=== PATIENT | male | born 1945 | race Caucasian/White ===

== ENCOUNTER 2016-07-26 08:20 | Emergency (ER) | payer OTHER, MEDICARE ==
[2016-07-26 08:25] VITALS: BP 153/89; PULSE 80; TEMP 98.2; BMI 33.4
--- NOTE | 2016-07-26 09:51 | PDOC ---
History of Present Illness - General Chief Complaint: Ear Problem Stated Complaint: RIGHT EAR CONGESTION Time Seen by Provider: 07/26/16 09:22 - History of Present Illness Initial Comments: 07/26/16 09:57 70-year-old male with a past medical history of hypertension and hyperlipidemia He is complaining of a 2 day history of a sensation in his right ear which she described as "a wind tunnel" feeling in his right ear, with some irritation He denies any recent URI, nasal congestion or sore throat, or left ear symptoms He denies any history of tinnitus He denies any fevers or chills He denies any other complaints Past History - Past Medical History Allergies/Adverse Reactions: Allergies Allergy/AdvReac Type Severity Reaction Status Date / Time No Known Drug Allergies Allergy Verified 07/26/16 08:21 Home Medications: Ambulatory Orders Amlodipine Besylate [Norvasc -] 10 mg PO DAILY 03/27/14 Metoprolol Tartrate [Lopressor -] 50 mg PO DAILY 03/27/14 Rosuvastatin Calcium [Crestor] 40 mg PO DAILY 03/27/14 Clopidogrel Bisulfate [Plavix -] 75 mg PO DAILY 07/26/16 Losartan Potassium [Cozaar] 100 mg PO DAILY 07/26/16 Neomycin/Polymyxn/Hc [Cortisporin Otic Suspenstion -] 4 drop AD QID #1 bottle Anemia: No Asthma: No Cancer: No Cardiac Disorders: Yes (MILD CO,HAD 5 STENTS 9844-1650;CAD,LAST NUCLEAR STRESS 5 MOS AGO AND [place]) CVA: No COPD: No CHF: No Dementia: No Diabetes: No GI Disorders: No Disorders: No HTN: Yes Hypercholesterolemia: Yes Liver Disease: No Seizures: No Thyroid Disease: No - Surgical History Abdominal Surgery: No Appendectomy: No Cardiac Surgery: Yes (CABG X3, PACEMAKER, STENT) Cholecystectomy: Yes Lung Surgery: No Neurologic Surgery: No Orthopedic Surgery: Yes (TRIGGER FINGER RELEASE) - Immunization History Td Vaccination: No - Psycho/Social/Smoking Cessation Hx Anxiety: No Suicidal Ideation: No Smoking Status: No Smoking History: Never smoked Have you smoked in the past 12 months: No Number of Cigarettes Smoked Daily: 0 Hx Alcohol Use: No Drug/Substance Use Hx: No Substance Use Type: None Hx Substance Use Treatment: No *Physical Exam - Vital Signs Last Vital Signs Temp Pulse Resp BP Pulse Ox 98.2 F 80 16 153/89 100 07/26/16 08:21 07/26/16 08:21 07/26/16 08:21 07/26/16 08:21 07/26/16 08:21 - Physical Exam Comments: 07/26/16 09:58 Physical exam Last Vital Signs Temp Pulse Resp BP Pulse Ox 98.2 F 80 16 153/89 100 07/26/16 08:21 07/26/16 08:21 07/26/16 08:21 07/26/16 08:21 07/26/16 08:21 Patient is awake and alert and answering questions Head is normocephalic and atraumatic Left TM is benign Right ear-there is mild otitis externa, with some debris in the canal There is no otitis media, and the tympanic membrane is intact There is no pre-or postauricular adenopathy Mouth and oropharynx are benign Neck is supple, no cervical adenopathy lungs clear heart regular *DC/Admit/Observation/Transfer Diagnosis at time of Disposition: Otitis externa - Discharge Dispostion Disposition: HOME Condition at time of disposition: Stable - Prescriptions Prescriptions: Neomycin/Polymyxn/Hc [Cortisporin Otic Suspenstion -] 4 drop AD QID #1 bottle - Referrals Referrals: Rosas Astudillo MD [Staff Physician] - - Patient Instructions Printed Discharge Instructions: Otitis Externa, DI for Otitis Externa Additional Instructions: Eardrops-4 drops to right ear every 6 hours Please follow-up with ENT if you are not [id number] with Dr. Astudillo Followup with your primary care physician in 24-48 hours Return immediately if you worsen in any way Take your medications as directed
== END 2016-07-26 09:54 | disposition home or self-care (01) ==
LOC: FER 08:20
DX: H60.91 Unspecified otitis externa, right ear (principal); I10 Essential (primary) hypertension; E78.5 Hyperlipidemia, unspecified; I25.2 Old myocardial infarction; Z95.5 Presence of coronary angioplasty implant and graft; Z95.0 Presence of cardiac pacemaker; Z95.1 Presence of aortocoronary bypass graft
CPT/HCPCS: 99282-25

== ENCOUNTER 2016-09-25 06:17 | Day surgery (SDC) | payer OTHER ==
[2016-09-24 16:40] VITALS: BMI 32.3
[2016-09-25] MEDS ORDERED: FLURBIPROFEN 0.03% OPHTH SOLN 2.5 ML BOTTLE ONE (06:36)
[2016-09-25] MEDS ORDERED: PHENYLEPHRINE 2.5% OPHTH SOLN 15 ML BOTTLE ONE (06:36)
[2016-09-25] MEDS ORDERED: TROPICAMIDE 1% OPHTH SOLN 15 ML BOTTLE ONE (06:36)
[2016-09-25] MEDS ORDERED: CYCLOPENTOLATE HCL 1% OPHTH SOLN 2 ML BOTTLE ONE (06:36)
[2016-09-25] MEDS ORDERED: CIPROFLOXACIN 0.3% EYE DROPS 5 ML BOTTLE ONE (06:36)
[2016-09-25 06:43] VITALS: TEMP 98.1
[2016-09-25] MEDS ORDERED: TROPICAMIDE 1% OPHTH SOLN 15 ML BOTTLE OD ONE ×3 (06:50→07:10)
[2016-09-25] MEDS ORDERED: PHENYLEPHRINE 2.5% OPHTH SOLN 15 ML BOTTLE OD ONE ×3 (06:50→07:10)
[2016-09-25] MEDS ORDERED: FLURBIPROFEN 0.03% OPHTH SOLN 2.5 ML BOTTLE OD ONE ×3 (06:50→07:10)
[2016-09-25] MEDS ORDERED: CYCLOPENTOLATE HCL 1% OPHTH SOLN 2 ML BOTTLE OD ONE ×3 (06:50→07:10)
[2016-09-25] MEDS ORDERED: CIPROFLOXACIN HCL 0.3% OPHTH 2.5ML BOTTLE OD ONE ×2 (06:50→07:05)
[2016-09-25] MEDS ORDERED: CIPROFLOXACIN 0.3% EYE DROPS 5 ML BOTTLE OD ONE (07:10)
[2016-09-25] MEDS ORDERED: EPINEPHrine/PF 1 MG/1 ML (1:1,000) AMPULE ONE (07:18)
[2016-09-25] MEDS ORDERED: LIDOCAINE HCL 2% JELLY (5 ML/TUBE) ONE (07:18)
[2016-09-25] MEDS ORDERED: LIDOCAINE 1% P/F 10 MG/ML VIAL ONE (07:18)
[2016-09-25] MEDS ORDERED: BUPIVACAINE HCL/PF 0.75% 10 ML VIAL ONE (07:18)
[2016-09-25] MEDS ORDERED: POVIDONE-IODINE 5% OPHTHALMIC PREP 30 ML SOLUTION ONE (07:19)
[2016-09-25] MEDS ORDERED: BSS (NA/CA/MG/K) BALANCED SALT SOLUTION OPHTH SOLN 15 ML BOTTLE ONE (07:19)
[2016-09-25] MEDS ORDERED: ACETYLCHOLINE 1:100 INTRA-OCUL 20 MG/2 ML KIT ONE (07:19)
[2016-09-25] MEDS ORDERED: TRYPAN BLUE 0.5 ML DISP.SYRIN ONE (07:19)
[2016-09-25] MEDS ORDERED: LIDOCAINE HCL/PF 2% SDV 5ML VIAL ONE (07:19)
[2016-09-25] MEDS ORDERED: WATER FOR INJ,STERILE 10 ML ONE (07:21)
[2016-09-25] MEDS ORDERED: VANCOMYCIN 500 MG VIAL (RESTRICTED TO ID ONLY) ONE (07:21)
[2016-09-25] MEDS ORDERED: ACETAMINOPHEN 325 MG TABLET (FP) PO PRN (07:43)
[2016-09-25] MEDS ORDERED: CYCLOPENTOLATE HCL 1% OPHTH SOLN 2 ML BOTTLE OP SCH (07:45)
[2016-09-25] MEDS ORDERED: TROPICAMIDE 1% OPHTH SOLN 15 ML BOTTLE OP SCH (07:45)
[2016-09-25] MEDS ORDERED: FLURBIPROFEN 0.03% OPHTH SOLN 2.5 ML BOTTLE OP SCH (07:45)
[2016-09-25] MEDS ORDERED: PHENYLEPHRINE 2.5% OPHTH SOLN 15 ML BOTTLE OP SCH (07:45)
[2016-09-25] MEDS ORDERED: CIPROFLOXACIN HCL 0.3% OPHTH 2.5ML BOTTLE OP SCH (07:45)
[2016-09-25] MEDS ORDERED: MIDAZOLAM HCL 2 MG/2 ML SINGLE DOSE VIAL ONE (07:45)
[2016-09-25] MEDS ORDERED: PROPOFOL 20 ML ONE (08:03)
[2016-09-25] MEDS ORDERED: LIDOCAINE HCL/PF 2% SDV 5ML VIAL PNB ONE ×2 (08:09→08:10)
[2016-09-25] MEDS ORDERED: BUPIVACAINE HCL/PF 0.75% 10 ML VIAL RB ONE (08:09)
[2016-09-25] MEDS ORDERED: BUPIVACAINE HCL/PF 0.75% 10 ML VIAL PNB ONE (08:10)
[2016-09-25] MEDS ORDERED: CHONDROITIN SU A/HYALUR SOD 1 KIT IO ONE (08:16)
[2016-09-25] MEDS ORDERED: LIDOCAINE HCL 1% PRESERVATIVE FREE - 30ML VIAL IO ONE (08:16)
[2016-09-25 09:32] VITALS: BP 149/89; PULSE 88
--- NOTE | 2016-09-25 19:42 | SPEC ---
DATE OF OPERATION: DATE OF DICTATION: 09/25/2016 OPERATION: Phacoemulsification on right side with posterior chamber intraocular lens implantation, lens used [id number], 21.0 Diopter, Serial No. [id number]. PREOPERATIVE DIAGNOSIS: Cataract right eye. POSTOPERATIVE DIAGNOSIS: Cataract right eye. SURGEON: Elva Londono M.D. ANESTHESIA: Peribulbar/Modified Van Lint/MAC. COMPLICATIONS: None. PROCEDURE: The patient was brought to the operating room and correctly identified along with the operative site and a correct intraocular lens garcia. The patient was then given a peribulbar block under sedation with 5 mL of a 1:1 mixture of 2% Lidocaine and 0.5% Bupivacaine. Two to 3 mL of the same mixture was given as a modified Van Lint block. The eye was then prepped and draped in the usual sterile fashion including 5% Betadine solution in the conjunctival sac and an eyelid drape. An eyelid speculum was then placed into the eye. A paracentesis port was created. Viscoelastic was injected to inflate the anterior chamber. A temporal clear corneal wound was created. A continuous circular capsulorrhexis was performed. The nucleus was then hydro-dissected and removed phacoemulsification via the [id number] approach. The remaining cortical material was irrigated and aspirated from the eye. Viscoelastic was injected to inflate the capsular bag. The lens was injected into the capsular bag. Viscoelastic was then irrigated and aspirated from the eye. The intraocular lens was noted to be well centered and covered by the anterior capsular border. All wounds were found to be watertight. Topical Vancomycin was given. The eye patch and shield were placed. The patient was discharged from the operating room in stable condition. ELVA LONDONO M.D. 1 [id number]
== END 2016-09-25 09:30 | disposition home or self-care (01) ==
LOC: JASU-SURG 06:17
PROVIDERS: ATTEND Ophthalmology
PROC: 08RJ3JZ Replacement of Right Lens with Synthetic Substitute, Percutaneous Approach (ICD-10-PCS; principal; 2016-09-25 08:00)
DX: H26.9 Unspecified cataract (principal)

== ENCOUNTER 2017-09-03 17:45 | Emergency (ER) | payer OTHER ==
[2017-09-03 18:01] VITALS: BP 155/81; PULSE 76; TEMP 98.1; BMI 32.6
--- NOTE | 2017-09-03 18:06 | PDOC ---
History of Present Illness - General History Source: Patient Exam Limitations: No Limitations - History of Present Illness Initial Comments: 09/03/17 19:00 The patient is a 72 year old male with significant past medical history of Right eye Cataract, HTN, HLD, Mild CA, Hypercholesterolemia, CABG 3X, pacemaker , stent and UTI presents to the ED complaining of hematuria since 1 o'clock this afternoon. The patient states he voided three times in the afternoon, prior to coming to the ER he reports passing dark red urine with a large blood clot. The patient reports a similar experience 2 years ago when he was diagnosed with UTI and was prescribed antibiotics. The patient reports night time urination 3x as his baseline.The patient report he takes baby Aspirin every other day, he states he took one today. The patient reports edema in his left lower extremity secondary to the vein removed during CABG. The patient denies dysuria or burning sensation, frequency or urgency to urinate, hematochezia, hematemesis, recent infection, headache, vision problem, fever, chills, unusual sweating,sore throat, chest pain, SOB, nausea, diarrhea, or constipation. Social History: Patient reports no history of smoking, drinking or using any recreational drugs. Allergies: NKDA <Chelsey Hanna - Last Filed: 09/03/17 19:10> <Joellen Crain - Last Filed: 09/06/17 09:29> - General Chief Complaint: Hematuria Stated Complaint: BLOOD IN URINE TODAY Time Seen by Provider: 09/03/17 17:47 Past History <Chelsey Hanna - Last Filed: 09/03/17 19:10> - Past Medical History Anemia: No Asthma: No Cancer: No Cardiac Disorders: Yes (MILD CA,HAD 5 STENTS [id number];CAD,LAST NUCLEAR STRESS 5 MOS AGO AND [place]) CVA: No COPD: No CHF: No Dementia: No Diabetes: No GI Disorders: No Disorders: No HTN: Yes Hypercholesterolemia: Yes Liver Disease: No Seizures: No Thyroid Disease: No - Surgical History Abdominal Surgery: No Appendectomy: No Cardiac Surgery: Yes (CABG X3, PACEMAKER, STENT) Cholecystectomy: Yes Lung Surgery: No Neurologic Surgery: No Orthopedic Surgery: Yes (TRIGGER FINGER RELEASE) - Immunization History Td Vaccination: No - Suicide/Smoking/Psychosocial Hx Smoking Status: No Smoking History: Never smoked Have you smoked in the past 12 months: No Number of Cigarettes Smoked Daily: 0 Hx Alcohol Use: No Drug/Substance Use Hx: No Substance Use Type: None Hx Substance Use Treatment: No <Joellen Crain - Last Filed: 09/06/17 09:29> - Past Medical History Allergies/Adverse Reactions: Allergies Allergy/AdvReac Type Severity Reaction Status Date / Time No Known Drug Allergies Allergy Verified 09/04/17 15:19 Home Medications: Ambulatory Orders Amlodipine Besylate [Norvasc -] 10 mg PO DAILY 09/04/17 Clopidogrel Bisulfate [Plavix] 75 mg PO DAILY 09/04/17 Losartan Potassium [Cozaar] 100 mg PO DAILY 09/04/17 Metoprolol Tartrate [Lopressor] 50 mg PO DAILY 09/04/17 Rosuvastatin [Crestor -] 40 mg PO DAILY 09/04/17 Review of Systems - Review of Systems Able to Perform ROS?: Yes Comments:: 09/03/17 19:00 GENERAL/CONSTITUTIONAL: No fever or chills. No weakness. HEAD, EYES, EARS, NOSE AND THROAT: No change in vision. No ear pain or discharge. No sore throat. CARDIOVASCULAR: No chest pain or shortness of breath. RESPIRATORY: No cough, wheezing, or hemoptysis. GASTROINTESTINAL: No nausea, vomiting, diarrhea or constipation. GENITOURINARY: (+) hematuria. No dysuria, frequency, or change in urination. MUSCULOSKELETAL: No joint or muscle swelling or pain. No neck or back pain. SKIN: No rash NEUROLOGIC: No headache, vertigo, loss of consciousness, or change in strength/ sensation. ENDOCRINE: No increased thirst. No abnormal weight change. HEMATOLOGIC/LYMPHATIC: No anemia, easy bleeding, or history of blood clots. ALLERGIC/IMMUNOLOGIC: No hives or skin allergy. <Chelsey Hanna - Last Filed: 09/03/17 19:10> *Physical Exam - Vital Signs Last Vital Signs Temp Pulse Resp BP Pulse Ox 98.1 F 76 18 155/81 99 09/03/17 17:46 09/03/17 17:46 09/03/17 17:46 09/03/17 17:46 09/03/17 17:46 - Physical Exam Comments: 09/03/17 18:59 GENERAL: Awake, alert, and fully oriented, in no acute distress HEAD: No signs of trauma EYES: PERRLA, EOMI, sclera anicteric, conjunctiva clear ENT: Auricles normal inspection, hearing grossly normal, nares patent, oropharynx clear without exudates. Moist mucosa NECK: Normal ROM, supple, no lymphadenopathy, JVD, or masses LUNGS: Breath sounds equal, clear to auscultation bilaterally. No wheezes, and no crackles HEART: Regular rate and rhythm, normal S1 and S2, no murmurs, rubs or gallops ABDOMEN: Soft, nontender, normoactive bowel sounds. No guarding, no rebound. No masses. No CVA tenderness EXTREMITIES: Normal range of motion. No clubbing or cyanosis. No cords, erythema, or tenderness NEUROLOGICAL: Cranial nerves II through XII grossly intact. Normal speech, normal gait SKIN: Warm, Dry, normal turgor, no rashes or lesions noted. <Chelsey Hanna - Last Filed: 09/03/17 19:10> - Vital Signs Last Vital Signs Temp Pulse Resp BP Pulse Ox 98.1 F 76 18 155/81 99 09/03/17 17:46 09/03/17 17:46 09/03/17 17:46 09/03/17 17:46 09/03/17 17:46 <Joellen Crain - Last Filed: 09/06/17 09:29> ED Treatment Course - ADDITIONAL ORDERS Additional order review: Laboratory Results 09/03/17 17:50 Urine Color Red <Chelsey Hanna - Last Filed: 09/03/17 19:10> Medical Decision Making - Medical Decision Making 09/03/17 19:[address] Ha at shift change. Awaiting UA results to determine whether abx are needed. Either way will require urology f/u. He is urinating freely without retention at present, does not require a langston. <Joellen Crain - Last Filed: 09/06/17 09:29> *DC/Admit/Observation/Transfer - Attestations Scribe Attestion: 09/03/17 19:01 Documentation prepared by Chelsey Hanna, acting as manager medical affairs for Joellen Crain MD. <Chelsey Hanna - Last Filed: 09/03/17 19:10> <Joellen Crain - Last Filed: 09/06/17 09:29> Diagnosis at time of Disposition: Hematuria - Discharge Dispostion Disposition: HOME Condition at time of disposition: Stable - Referrals Referrals: Jovita Atwood MD [Staff Physician] - - Patient Instructions Printed Discharge Instructions: DI for Hematuria Additional Instructions: drink plenty of water cipro 250mg twice a day for [address] Mo Atwood on Friday, September 05 as scheduled call urologist(Dr Jovita Atwood) office tomorrow to arrange followup within 1 week return to ER if you have fever/pain/difficulty urinating
[2017-09-03 18:09] LABS: URINE COLOR RED
[2017-09-03 18:11] LABS: PH,URINE 6.5 (4.5-8); URINE APPEARANCE Turbid; URINE BILIRUBIN Negative (NEGATIVE); URINE GLUCOSE (UA) Negative (NEGATIVE); URINE KETONE Negative (NEGATIVE); URINE LEUK ESTERASE Negative (NEGATIVE); URINE NITRITE Negative (NEGATIVE)
[2017-09-03 19:20] LABS: URINE BLOOD 3+ (NEGATIVE); URINE PROTEIN 2+ (NEGATIVE)
[2017-09-03 19:29] LABS: URINE RBC 20-30 /hpf (0-3); URINE WBC 0 (0-2)
[2017-09-03 19:30] LABS: EPI CELLS 1+ /HPF; URINE BACTERIA RARE /hpf (NEGATIVE)
[2017-09-03] MEDS ORDERED: CIPROFLOXACIN 250 MG TABLET (RESTRICTED TO ID) PO ONE ×2 (19:51→19:56)
--- NOTE | 2017-09-03 19:58 | PDOC ---
*Physical Exam - Vital Signs Last Vital Signs Temp Pulse Resp BP Pulse Ox 98.1 F 76 18 155/81 99 09/03/17 17:46 09/03/17 17:46 09/03/17 17:46 09/03/17 17:46 09/03/17 17:46 ED Treatment Course - ADDITIONAL ORDERS Additional order review: Laboratory Results 09/03/17 17:50 Urine Color Red Urine Appearance Turbid Urine pH 6.5 Ur Specific [place] 1.015 Urine Protein 2+ H Urine Glucose (UA) Negative Urine Ketones Negative Urine Blood 3+ H Urine Nitrite Negative Urine Bilirubin Negative Urine Urobilinogen 1.0 Ur Leukocyte Esterase Negative Urine RBC 20-30 Urine WBC 0 Ur Epithelial Cells 1+ Urine Bacteria Rare Progress Note - Progress Note Progress Note: Care of this patient received from Dr. Crain. The patient is comfortable and without complaints. Urinalysis is positive for 20-30 RBCs/0 WBCs/rare bacteria. Culture and sensitivity of the urine is sent. Patient will be started empirically on Cipro 250 mg twice a day; he has been seen by Dr. Jovita Atwood in the past. He will be referred to him for urologic follow-up within the next week. The patient already has an appointment for follow-up for an unrelated issue with his primary medical doctor (Dr. Mo Atwood) on August. Patient will return to ER if he has increased pain/fever/urinary retention *DC/Admit/Observation/Transfer Diagnosis at time of Disposition: Hematuria Qualifiers: Hematuria type: unspecified type Qualified Code(s): R31.9 - Hematuria, unspecified - Discharge Dispostion Disposition: HOME Condition at time of disposition: Stable - Prescriptions Prescriptions: Ciprofloxacin [Cipro (Restricted To Id)] 250 mg PO BID #10 tablet - Referrals Referrals: Jovita Atwood MD [Staff Physician] - - Patient Instructions Printed Discharge Instructions: DI for Hematuria Additional Instructions: drink plenty of water cipro 250mg twice a day for [address] Mo Atwood on September 05 as scheduled call urologist(Dr Jovita Atwood) office tomorrow to arrange followup within 1 week return to ER if you have fever/pain/difficulty urinating - Post Discharge Activity
== END 2017-09-03 19:59 | disposition home or self-care (01) ==
LOC: FER 17:45
DX: R31.9 Hematuria, unspecified (principal); I10 Essential (primary) hypertension; E78.5 Hyperlipidemia, unspecified; Z95.1 Presence of aortocoronary bypass graft; Z95.0 Presence of cardiac pacemaker
CPT/HCPCS: 81003; 81015; 87086; 99282-25

== ENCOUNTER 2017-09-04 05:23 | Emergency (ER) | payer OTHER ==
[2017-09-04 05:39] VITALS: BP 146/79; PULSE 81; TEMP 97.9; BMI 38.0
--- NOTE | 2017-09-04 05:43 | PDOC ---
History of Present Illness - General Chief Complaint: Urinary Problem Stated Complaint: URINARY PROBLEM Time Seen by Provider: 09/04/17 05:26 History Source: Patient Exam Limitations: No Limitations - History of Present Illness Initial Comments: 09/04/17 05:38 Patient is a 72M with history of BPH, HTN, HLD, GA s/p cabg and stent here today complaining of urinary retention. He was seen at [facility] for hematuria yesterday evening. He states that he passed some blood clots then was not able to pass urine overnight. Patient was discharged with cipro 250mg. Patient's only other associated complaint is suprapubic abdominal pain. Denies fevers, chills, nausea, vomiting. Denies chest pain, shortness of breath, weakness. Past History - Past Medical History Allergies/Adverse Reactions: Allergies Allergy/AdvReac Type Severity Reaction Status Date / Time No Known Drug Allergies Allergy Verified 09/04/17 05:32 Home Medications: Ambulatory Orders Amlodipine Besylate [Norvasc -] 10 mg PO DAILY 03/27/14 Metoprolol Tartrate [Lopressor -] 50 mg PO DAILY 03/27/14 Rosuvastatin Calcium [Crestor] 40 mg PO DAILY 03/27/14 Clopidogrel Bisulfate [Plavix -] 75 mg PO DAILY 07/26/16 Losartan Potassium [Cozaar] 100 mg PO DAILY 07/26/16 Anemia: No Asthma: No Cancer: No Cardiac Disorders: Yes (MILD GA,HAD 5 STENTS [id number];CAD,LAST NUCLEAR STRESS 5 MOS AGO AND [place]) CVA: No COPD: No CHF: No Dementia: No Diabetes: No GI Disorders: No Disorders: No HTN: Yes Hypercholesterolemia: Yes Liver Disease: No Seizures: No Thyroid Disease: No - Surgical History Abdominal Surgery: No Appendectomy: No Cardiac Surgery: Yes (CABG X3, PACEMAKER, STENT) Cholecystectomy: Yes Lung Surgery: No Neurologic Surgery: No Orthopedic Surgery: Yes (TRIGGER FINGER RELEASE) - Immunization History Td Vaccination: No - Suicide/Smoking/Psychosocial Hx Smoking Status: No Smoking History: Never smoked Have you smoked in the past 12 months: No Number of Cigarettes Smoked Daily: 0 Hx Alcohol Use: No Drug/Substance Use Hx: No Substance Use Type: None Hx Substance Use Treatment: No Review of Systems - Review of Systems Comments:: 09/04/17 05:40 GENERAL/CONSTITUTIONAL: No fever or chills. No weakness. HEAD, EYES, EARS, NOSE AND THROAT: No change in vision. No ear pain or discharge. No sore throat. CARDIOVASCULAR: No chest pain or shortness of breath RESPIRATORY: No cough, wheezing, or hemoptysis. GASTROINTESTINAL: No nausea, vomiting, diarrhea or constipation. GENITOURINARY: Positive for hematuria and retention. MUSCULOSKELETAL: No joint or muscle swelling or pain. No neck or back pain. SKIN: No rash NEUROLOGIC: No headache, vertigo, loss of consciousness, or change in strength/ sensation. ALLERGIC/IMMUNOLOGIC: No hives or skin allergy. *Physical Exam - Vital Signs Last Vital Signs Temp Pulse Resp BP Pulse Ox 97.9 F 81 16 146/79 97 09/04/17 05:31 09/04/17 05:31 09/04/17 05:31 09/04/17 05:31 09/04/17 05:31 - Physical Exam Comments: 09/04/17 05:41 GENERAL: Awake, alert, and fully oriented, in no acute distress HEAD: No signs of trauma, normocephalic, atraumatic EYES: PERRLA, EOMI, sclera anicteric, conjunctiva clear ENT: Auricles normal inspection, hearing grossly normal, nares patent, oropharynx clear without exudates. Moist mucosa NECK: Normal ROM, supple, no lymphadenopathy, JVD, or masses LUNGS: No distress, speaks full sentences, clear to auscultation bilaterally HEART: Regular rate and rhythm, normal S1 and S2, no murmurs, rubs or gallops, peripheral pulses normal and equal bilaterally. ABDOMEN: Soft, positive for suprapubic tenderness. No guarding, no rebound. No masses EXTREMITIES: Normal inspection, Normal range of motion, no edema. No clubbing or cyanosis. NEUROLOGICAL: Cranial nerves II through XII grossly intact. Normal speech, normal gait, no focal sensorimotor deficits SKIN: Warm, Dry, normal turgor, no rashes or lesions noted. ED Treatment Course - LABORATORY CBC & Chemistry Diagram: 09/04/17 05:50 09/04/17 05:50 Medical Decision Making - Medical Decision Making 09/04/17 05:41 Patient is 72M with history of BPH, HTN, HLD, GA s/p CABG and stents here today with urinary retention. Vital signs stable and normal. Will workup with cbc, cmp , ua, uc. Will place langston to treat. Patient already given urology follow up, has not made appointment yet. Has PCP follow up scheduled for tomorrow. Will instruct patient to call urology this morning to make appointment. 09/04/17 06:07 Patient reassessed, has 350cc of bloody urine in langston bag. Says that he feels much better. 09/04/17 06:11 Laboratory Tests 09/04/17 09/04/17 05:50 05:50 WBC 7.8 Hgb 15.1 Hct 42.7 Plt Count 169 Urine Blood 3+ H Urine WBC (Auto) 15 CBC normal. UA positive for blood, >1k RBCs, 15 WBCs. 09/04/17 07:[address] Parks. *DC/Admit/Observation/Transfer Diagnosis at time of Disposition: Urinary retention - Referrals Referrals: Mo Atwood MD [Primary Care Provider] - Jovita Atwood MD [Staff Physician] - - Patient Instructions Printed Discharge Instructions: DI for Urinary Retention in Men Additional Instructions: You were seen today in the ED for urinary retention. Please call the urology referral in your paperwork this morning to schedule an appointment in the next two days. Please return if you have any new, worsening or concerning symptoms. - Post Discharge Activity
[2017-09-04 06:01] LABS: URINE APPEARANCE CLOUDY; URINE BILIRUBIN NEGATIVE (<2.0 mg/dL); URINE BLOOD 3+ (NEGATIVE); URINE COLOR RED; URINE GLUCOSE (UA) 2+ (NEGATIVE); URINE KETONE NEGATIVE (NEGATIVE); URINE LEUK ESTERASE NEGATIVE (NEGATIVE); URINE NITRITE NEGATIVE (NEGATIVE); URINE UROBILINOGEN NEGATIVE mg/dL (0.2-1.0)
[2017-09-04 06:03] LABS: BASO % 0.4 % (0-2.0); EOS % 6.6 % (0-4.5); HEMATOCRIT 42.7 % (35.4-49); HEMOGLOBIN 15.1 GM/dL (11.7-16.9); LYMPH % 26.6 % (8-40); MCH 31.7 pg (25.7-33.7); MCHC 35.4 g/dl (32.0-35.9); MEAN CELL VOLUME 89.6 fl (80-96); MONO % 10.4 % (3.8-10.2); PLATELET COUNT 169 K/MM3 (134-434); RBC 4.76 M/mm3 (4.00-5.60); RDW 13.4 % (11.9-15.9); URINE PROTEIN 2+ (NEGATIVE); WHITE BLOOD COUNT 7.8 K/mm3 (4.0-10.0)
[2017-09-04 06:07] LABS: URINE BACTERIA RARE /hpf (NONE SEEN); URINE MUCUS RARE
[2017-09-04 06:22] LABS: ALBUMIN 3.9 g/dl (3.4-5.0); ANION GAP 12 (8-16); BILIRUBIN,TOTAL 0.7 mg/dL (0.2-1.0); BLOOD UREA NITROGEN 12 mg/dL (7-18); CALCIUM 9.6 mg/dL (8.5-10.1); CHLORIDE 103 mmol/L (98-107); CO2 25 mmol/L (21-32); CREATININE 0.8 mg/dL (0.7-1.3); GLUCOSE,RANDOM 130 mg/dL (74-106); POTASSIUM 3.5 mmol/L (3.5-5.1); SGOT/AST 32 U/L (15-37); SGPT/ALT 63 U/L (12-78); SODIUM 140 mmol/L (136-145); TOT PROT 7.7 g/dl (6.4-8.2)
[2017-09-04 06:23] LABS: ALK PHOS 48 U/L (45-117)
--- NOTE | 2017-09-04 06:36 | PDOC ---
Attending Attestation - HPI HPI: 09/04/17 06:37 Patient is a 72 year old male with a significant past medical history of Right eye Cataract, HTN, HLD, Mild PA, Hypercholesterolemia, CABG 3X, pacemaker, stent and UTI who presents to the ED with complaints of urinary retention that began last night. Patient reports being seen at [facility] yesterday afternoon for hematuria before being treated and discharged. He reports being able to pass some blood clots followed by being unable to correctly pass urine overnight, prompting him to come into the ED for further evaluation. He reports experiencing associated symptoms of diffuse abdominal pain. Denies chest pain, Sob. Denies nausea, vomiting. Denies fevers,chills. Denies contact with sick individuals, out of state travelling. Denies trauma to affected area. Denies any other symptoms. Allergies: None Social history: No smoking. No alcohol. No illicit drugs. Surgical history: None PMD: Dr. Mo Atwood <Bebo Sabillon - Last Filed: 09/04/17 06:36> - Resident Resident Name: Jr Guerin - ED Attending Attestation I have performed the following: I have examined & evaluated the patient, The case was reviewed & discussed with the resident, I agree w/resident's findings & plan, Exceptions are as noted - Physicial Exam PE: 09/04/17 06:39 Physical Exam General Appearance: Yes: Appropriately Dressed. No: Apparent Distress, Intoxicated HEENT: positive: EOMI, RINA, Normal ENT Inspection, Normal Voice, TMs Normal, Pharynx Normal. negative: Pale Conjunctivae, Photophobia, Scleral Icterus (R), Scleral Icterus (L) Neck: positive: Trachea midline, Normal Thyroid, Supple. negative: Tender, Rigid, Carotid bruit, Stridor, Lymphadenopathy (R), Lymphadenopathy (L), Thyromegaly Respiratory/Chest: positive: Lungs Clear, Normal Breath Sounds. negative: Chest Tender, Respiratory Distress, Accessory Muscle Use, Labored Respiration, RES, Crackles, Rales, Rhonchi, Stridor, Wheezing, Dullness Cardiovascular: positive: Regular Rhythm, Regular Rate, S1, S2. negative: Edema , JVD, Murmur, Bradycardia, Tachycardia Vascular Pulses: Dorsalis-Pedis (R): 2+, Doralis-Pedis (L): 2+ Gastrointestinal/Abdominal: positive: Normal Bowel Sounds, Flat, Soft. negative : Tender, Organomegaly, Pulsatile Mass, Increased Bowel Sounds, Decreased BS, Distended, Guarding, Rebound, Hernia, Hepatomegaly, Spleenomegaly Lymphatic: negative: Adenopathy, Tenderness Musculoskeletal: positive: Normal Inspection. negative: CVA Tenderness, Decreased Range of Motion Extremity: positive: Normal Capillary Refill, Normal Inspection, Normal Range of Motion, Pelvis Stable. negative: Tender, Pedal Edema, Swelling, Erythema Integumentary: positive: Normal Color, Dry, Warm. 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 negative: EOM Palsy, Facial Droop, Sensory Deficit - Medical Decision Making 09/04/17 06:40 Pt treated and released. Pt to be discharged with langston catheter in place <Porter Esposito - Last Filed: 09/04/17 06:40>
--- NOTE | 2017-09-04 08:27 | PDOC ---
*Physical Exam - Vital Signs Last Vital Signs Temp Pulse Resp BP Pulse Ox 97.9 F 81 16 146/79 97 09/04/17 05:31 09/04/17 05:31 09/04/17 05:31 09/04/17 05:31 09/04/17 05:31 ED Treatment Course - LABORATORY CBC & Chemistry Diagram: 09/04/17 05:50 09/04/17 05:50 - ADDITIONAL ORDERS Additional order review: Laboratory Results 09/04/17 09/04/17 05:50 05:50 Sodium 140 Potassium 3.5 Chloride 103 Carbon Dioxide 25 Anion Gap 12 BUN 12 D Creatinine 0.8 Creat Clearance w eGFR > 60 Random Glucose 130 H Calcium 9.6 Total Bilirubin 0.7 AST 32 D ALT 63 D Alkaline Phosphatase 48 Total Protein 7.7 Albumin 3.9 Urine Color Red Urine Appearance Cloudy Urine pH 6.0 Ur Specific [place] 1.015 Urine Protein 2+ H Urine Glucose (UA) 2+ H Urine Ketones Negative Urine Blood 3+ H Urine Nitrite Negative Urine Bilirubin Negative Urine Urobilinogen Negative Ur Leukocyte Esterase Negative Urine WBC (Auto) 15 Urine RBC (Auto) 1654 Urine Bacteria Rare Urine Mucus Rare 09/04/17 05:50 RBC 4.76 MCV 89.6 MCHC 35.4 RDW 13.4 MPV 8.0 Neutrophils % 56.0 Lymphocytes % 26.6 Monocytes % 10.4 H Eosinophils % 6.6 H Basophils % 0.4 Medical Decision Making - Medical Decision Making Patient signed out ins table condition with plan to DC with langston and follow up with urologist Angelic for retention. Chemistry WNL so will DC home. 09/04/17 08:26 *DC/Admit/Observation/Transfer Diagnosis at time of Disposition: Urinary retention - Referrals Referrals: Mo Atwood MD [Primary Care Provider] - Jovita Atwood MD [Staff Physician] - - Patient Instructions Printed Discharge Instructions: DI for Urinary Retention in Men Additional Instructions: You were seen today in the ED for urinary retention. Please call the urology referral in your paperwork this morning to schedule an appointment in the next two days. Please return if you have any new, worsening or concerning symptoms. - Post Discharge Activity
== END 2017-09-04 08:42 | disposition home or self-care (01) ==
LOC: JER 05:23
PROC: 0T9B70Z Drainage of Bladder with Drainage Device, Via Natural or Artificial Opening (ICD-10-PCS; principal; 2017-09-04)
DX: R33.8 Other retention of urine (principal); I25.2 Old myocardial infarction; I25.10 Atherosclerotic heart disease of native coronary artery without angina pectoris; I10 Essential (primary) hypertension; Z95.1 Presence of aortocoronary bypass graft; Z95.5 Presence of coronary angioplasty implant and graft; Z95.0 Presence of cardiac pacemaker; E78.00 Pure hypercholesterolemia, unspecified
CPT/HCPCS: 36415; 80053; 81003; 81015; 85025; 87086; 99281-25

== ENCOUNTER 2017-09-04 10:34 | Emergency (ER) | payer OTHER ==
[2017-09-04 10:45] VITALS: BP 118/73; PULSE 79; TEMP 98; BMI 32.6
--- NOTE | 2017-09-04 11:12 | PDOC ---
History of Present Illness - General Chief Complaint: Urinary Catheter Problem Stated Complaint: Urinary Catheter Problem Past History - Past Medical History Allergies/Adverse Reactions: Allergies Allergy/AdvReac Type Severity Reaction Status Date / Time No Known Drug Allergies Allergy Verified 09/04/17 10:44 Anemia: No Asthma: No Cancer: No Cardiac Disorders: Yes (MILD [place],HAD 5 STENTS [id number];CAD,LAST NUCLEAR STRESS 5 MOS AGO AND [place]) CVA: No COPD: No CHF: No Dementia: No Diabetes: No GI Disorders: No Disorders: No HTN: Yes Hypercholesterolemia: Yes Liver Disease: No Seizures: No Thyroid Disease: No - Surgical History Abdominal Surgery: No Appendectomy: No Cardiac Surgery: Yes (CABG X3, PACEMAKER, STENT) Cholecystectomy: Yes Lung Surgery: No Neurologic Surgery: No Orthopedic Surgery: Yes (TRIGGER FINGER RELEASE) - Immunization History Td Vaccination: No - Suicide/Smoking/Psychosocial Hx Smoking Status: No Smoking History: Never smoked Have you smoked in the past 12 months: No Number of Cigarettes Smoked Daily: 0 Hx Alcohol Use: No Drug/Substance Use Hx: No Substance Use Type: None Hx Substance Use Treatment: No *Physical Exam - Vital Signs Last Vital Signs Temp Pulse Resp BP Pulse Ox 98 F 79 18 118/73 100 09/04/17 10:41 09/04/17 10:41 09/04/17 10:41 09/04/17 10:41 09/04/17 10:41 *DC/Admit/Observation/Transfer Diagnosis at time of Disposition: Urinary retention, Hematuria, UTI (urinary tract infection) - Discharge Dispostion Disposition: HOME Condition at time of disposition: Stable Admit: No - Referrals Referrals: Jr Ley MD [Staff Physician] - - Patient Instructions Printed Discharge Instructions: DI for Urinary Retention in Men Additional Instructions: Discharge instructions 1. Please follow up with your primary physician within the next few days and explain that you have been seen here in the Emergency Room. Please report to Dr. Cerna's office at [address] [place] [address], [address] [place] immediately after discharge from ER for evaluation. 2. Drink plenty of water - Post Discharge Activity
--- NOTE | 2017-09-04 12:04 | PDOC ---
*Physical Exam - Vital Signs Last Vital Signs Temp Pulse Resp BP Pulse Ox 98 F 79 18 118/73 100 09/04/17 10:41 09/04/17 10:41 09/04/17 10:41 09/04/17 10:41 09/04/17 10:41 - Physical Exam General Appearance: Yes: Appropriately Dressed Respiratory/Chest: positive: Lungs Clear, Normal Breath Sounds Cardiovascular: positive: Regular Rhythm, Regular Rate, S1, S2 Gastrointestinal/Abdominal: positive: Normal Bowel Sounds, Flat, Soft. negative : Tender Male Genitalia: positive: other (langston in place with blood in langston bag) Musculoskeletal: positive: Normal Inspection. negative: CVA Tenderness Extremity: positive: Normal Capillary Refill, Normal Inspection Medical Decision Making - Medical Decision Making 09/04/17 12:01 72 yo male with hematuria, s/p langston placement this am, here with c/o langston problem . langston not draining, but leaking urine around the cathetar. was placed around 8 am. no abd pain,no f/c is currently taking plavix, on exam awake alert NAD. abd soft nt. no cva tenderness. lungs clear bilat heart rrr no mrg. langston bag with hematuria, currrenlty draining. plan: successful irrigation of cathetar, pt sent directly to urology for followup from ed visit. pt seen in conjunction with Caryl Sher NP, agree with her assessment and plan. 09/04/17 12:21 *DC/Admit/Observation/Transfer Diagnosis at time of Disposition: Urinary retention, Hematuria, UTI (urinary tract infection) - Discharge Dispostion Disposition: HOME Condition at time of disposition: Stable - Referrals Referrals: Jr Ley MD [Staff Physician] - - Patient Instructions Printed Discharge Instructions: DI for Urinary Retention in Men Additional Instructions: Discharge instructions 1. Please follow up with your primary physician within the next few days and explain that you have been seen here in the Emergency Room. Please report to Dr. Cerna's office at [address] [place] [address], [address] [place] immediately after discharge from ER for evaluation. 2. Drink plenty of water - Post Discharge Activity
== END 2017-09-04 12:04 | disposition home or self-care (01) ==
LOC: JER 10:34
PROC: 3C1ZX8Z Irrigation of Indwelling Device using Irrigating Substance, External Approach (ICD-10-PCS; principal; 2017-09-04)
DX: T83.038A Leakage of other urinary catheter, initial encounter (principal); N39.0 Urinary tract infection, site not specified; R33.8 Other retention of urine
CPT/HCPCS: 99282-25

== ENCOUNTER 2017-09-04 14:56 | Inpatient (IN) | payer OTHER ==
--- NOTE | 2017-09-04 15:16 | PDOC ---
Rapid Medical Evaluation Time Seen by Provider: 09/04/17 15:15 Medical Evaluation: Allergies Allergy/AdvReac Type Severity Reaction Status Date / Time No Known Drug Allergies Allergy Verified 09/04/17 10:44 09/04/17 15:15 I have performed a brief in-person evaluation of this patient. The patient presents with a chief complaint of: needs cystoscopy per Dr. Atwood , just discharged this am for urinary retention, clogged catheter and bleeding this am after discharge Pertinent physical exam findings: well appearing I have ordered the following: nothing The patient will proceed to the ED for further evaluation. Discharge Disposition - Referrals Referrals: Mo Atwood MD [Primary Care Provider] - - Patient Instructions - Post Discharge Activity
--- NOTE | 2017-09-04 15:58 | PDOC ---
History of Present Illness - General Chief Complaint: Urinary Problem Stated Complaint: SENT BY PCP Time Seen by Provider: 09/04/17 15:15 History Source: Patient Exam Limitations: No Limitations - History of Present Illness Initial Comments: 09/04/17 15:53 This 72-year-old male has had several visits to the emergency room over the last 24 hours. Initially came in with a finding of a positive UTI and was treated with Cipro and sent home, he was then returned 12 hours later with urinary retention and hematuria. A Langston catheter was placed with a leg bag and told to follow-up with the urologist, Dr. Warren Atwood. He was home for 4 hours and noticed a lot of leaking around the catheter in his penis and has severe blood. He then returns. There was only 50 mL of jann red blood/urine in the Langston bag. He was irrigated and remained clot free. Unable to have Dr. Chralotte Atwood see the patient in the office or in the ER, we notified the urologist to his personalization specialist, Dr. Cerna. After having a discussion with him he stated he [facility] [facility] [address] Apparently the patient was discharged and went across the street and the staff in Dr. Cerna' s office did not take his insurance and sent him down to Dr. Warren Atwood's office in the same building and the patient was seen. He was then be sent back in here now for admission and a cystoscopy. PCP is Dr. Salmon Past History - Past Medical History Allergies/Adverse Reactions: Allergies Allergy/AdvReac Type Severity Reaction Status Date / Time No Known Drug Allergies Allergy Verified 09/04/17 15:19 Home Medications: Ambulatory Orders Amlodipine Besylate [Norvasc -] 10 mg PO DAILY 09/04/17 Clopidogrel Bisulfate [Plavix] 75 mg PO DAILY 09/04/17 Losartan Potassium [Cozaar] 100 mg PO DAILY 09/04/17 Metoprolol Tartrate [Lopressor] 50 mg PO DAILY 09/04/17 Rosuvastatin [Crestor -] 40 mg PO DAILY 09/04/17 Anemia: No Asthma: No Cancer: No Cardiac Disorders: Yes (MILD [place],HAD 5 STENTS [id number];CAD,LAST NUCLEAR STRESS 5 MOS AGO AND [place]) CVA: No COPD: No CHF: No Dementia: No Diabetes: No GI Disorders: No Disorders: No HTN: Yes Hypercholesterolemia: Yes Liver Disease: No Seizures: No Thyroid Disease: No - Surgical History Abdominal Surgery: No Appendectomy: No Cardiac Surgery: Yes (CABG X3, PACEMAKER, STENT) Cholecystectomy: Yes Lung Surgery: No Neurologic Surgery: No Orthopedic Surgery: Yes (TRIGGER FINGER RELEASE) - Immunization History Td Vaccination: No - Suicide/Smoking/Psychosocial Hx Smoking Status: No Smoking History: Never smoked Have you smoked in the past 12 months: No Number of Cigarettes Smoked Daily: 0 Hx Alcohol Use: No Drug/Substance Use Hx: No Substance Use Type: None Hx Substance Use Treatment: No Review of Systems - Review of Systems Able to Perform ROS?: Yes Comments:: 09/04/17 15:56 General statement: for admission for bloody urine Hematology: neg history of bleeding/blood thinners Skin: Neg for lesions, rash, bruising. HEENT: Neg symptoms Respiratory: Neg SOB or difficulty in breathing Cardiac: Neg chest pain GI: Neg pain, n/v : langston cath with hematuria MS: Neg for joint pain/stiffness, no edema Neuro: Neg for LOC, weakness, Endocrine: Neg for excess thirst/hunger, cold/heat intolerance, excess sweating Allergies: Neg for allergies *Physical Exam - Vital Signs Last Vital Signs Temp Pulse Resp BP Pulse Ox 98.2 F 79 18 116/60 99 09/04/17 15:16 09/04/17 15:16 09/04/17 15:16 09/04/17 15:16 09/04/17 15:16 - Physical Exam Comments: 09/04/17 15:57 General Appearance: This well appearing 72-year-old male V/S: hemodynamically stable, afebrile Skin: WNL of pt's skin color, no signs of pallor, mottling, cyanosis Head:symmetrical Eyes: EOM's intact, PERRLA Ears: denies pain Nose: patent Throat: lips, teeth, gums, tongue, buccal mucos pink and moist Lungs: Chest symmetry equal. Cap refill <3 seconds. Lung sounds clear Cardiac: PMI at R 4MCL space, pos S1 and S2, regular rate. Abdomen: Soft, round, nontender : Langston catheter to straight leg drain who is having some jann red hematuria. No clots appearing. He is having some drainage around the catheter itself. Muscularskeletal: Gait steady, ambulated in to ER, no edema +PMS Neuro: AAOx3, cognitively intact, speech clear and appropriate. Medical Decision Making - Medical Decision Making 09/04/17 15:57 Please see the history of present illness. Patient is being admitted for cystoscopy with Dr. Warren Atwood. Patient case discussed with Dr. Salmon for admission to [facility]. *DC/Admit/Observation/Transfer Diagnosis at time of Disposition: Cystitis, UTI (urinary tract infection), Urinary retention, Hematuria - Discharge Dispostion Condition at time of disposition: Stable Admit: Yes - Referrals Referrals: Mo Atwood MD [Primary Care Provider] - - Patient Instructions - Post Discharge Activity
[2017-09-04] MEDS ORDERED: morphine SULFATE 4 MG/ML VIAL ONE (20:32)
[2017-09-04] MEDS ORDERED: TAMSULOSIN HCL 0.4 MG CAP.ER.24H (FP) ONE (20:33)
[2017-09-05] MEDS ORDERED: DEXTROSE 5%-0.45% SALINE 1,000 ML IV SCH ×2 (00:30→14:15)
[2017-09-05] MEDS ORDERED: morphine CARPU-JECT 2 MG/1 ML DISP.SYRIN IVPUSH ONE (00:48)
[2017-09-05] MEDS ORDERED: morphine SULFATE 4 MG/ML VIAL IVPUSH ONE (01:15)
[2017-09-05 02:26] VITALS: BMI 33.0
[2017-09-05 08:35] LABS: BASO % 0.1 % (0-2.0); EOS % 0.4 % (0-4.5); HEMATOCRIT 33.6 % (35.4-49); HEMOGLOBIN 11.5 GM/dL (11.7-16.9); LYMPH % 10.1 % (8-40); MCH 31.2 pg (25.7-33.7); MCHC 34.3 g/dl (32.0-35.9); MEAN CELL VOLUME 90.9 fl (80-96); MEAN PLT VOLUME 8.2 fl (7.5-11.1); MONO % 7.3 % (3.8-10.2); NEUT % 82.1 % (42.8-82.8); PLATELET COUNT 150 K/MM3 (134-434); RDW 13.4 % (11.9-15.9); WHITE BLOOD COUNT 11.2 K/mm3 (4.0-10.0)
[2017-09-05 08:51] LABS: CHLORIDE 100 mmol/L (98-107); POTASSIUM 4.2 mmol/L (3.5-5.1); SODIUM 136 mmol/L (136-145)
[2017-09-05 09:02] LABS: ALBUMIN 3.2 g/dl (3.4-5.0); ALK PHOS 42 U/L (45-117); ANION GAP 8 (8-16); BILIRUBIN,TOTAL 1.1 mg/dL (0.2-1.0); BLOOD UREA NITROGEN 19 mg/dL (7-18); CALCIUM 8.4 mg/dL (8.5-10.1); CO2 28 mmol/L (21-32); CREATININE 0.9 mg/dL (0.7-1.3); GLUCOSE,RANDOM 278 mg/dL (74-106); SGOT/AST 21 U/L (15-37); SGPT/ALT 47 U/L (12-78)
[2017-09-05] MEDS: TAMSULOSIN HCL 0.4 MG CAP.ER.24H (FP) PO SCH (09:32)
--- NOTE | 2017-09-05 10:09 | EKG ---
Test Reason : Blood Pressure : / mmHG Vent. Rate : 066 BPM Atrial Rate : 066 BPM P-R Int : 202 ms QRS Dur : 100 ms QT Int : 388 ms P-R-T Axes : 050 -18 139 degrees QTc Int : 406 ms Atrial-paced rhythm LEFT VENTRICULAR HYPERTROPHY WITH REPOLARIZATION ABNORMALITY ABNORMAL ECG WHEN COMPARED WITH ECG OF 28-MAR-2016 07:44, T WAVE INVERSION MORE EVIDENT IN LATERAL LEADS Confirmed by PORSCHE KILPATRICK, BABATUNDE ([id number]) on 09/05/2017 10:08:58 AM Referred By: Confirmed By:BABATUNDE MORRELL MD
[2017-09-05] MEDS ORDERED: cefTRIAXone SODIUM 1 GM VIAL ONE (10:10)
[2017-09-05] MEDS ORDERED: DEXTROSE 5%-WATER - 50 ML IVPB ONE (10:10)
[2017-09-05] MEDS: METOPROLOL TARTRATE 50 MG TABLET (FP) PO SCH (10:20)
[2017-09-05] MEDS: CEFTRIAXONE 1 GM in DEXTROSE 5%-WATER - 50 ML IVPB SCH (10:20)
[2017-09-05] MEDS: amLODIPine BESYLATE 10 MG TABLET (FP) PO SCH (10:20)
[2017-09-05] MEDS: LOSARTAN POTASSIUM 50 MG TABLET (FP) PO SCH (10:20)
[2017-09-05 12:31] LABS: PH,URINE 6.5 (5.0-8.0); URINE APPEARANCE CLEAR; URINE BILIRUBIN 2+ (<2.0 mg/dL); URINE BLOOD 3+ (NEGATIVE); URINE COLOR DK. RED; URINE GLUCOSE (UA) 1+ (NEGATIVE); URINE KETONE 1+ (NEGATIVE); URINE UROBILINOGEN 4.0 E.U/dl mg/dL (0.2-1.0)
[2017-09-05 12:38] LABS: URINE LEUK ESTERASE 2+ (NEGATIVE); URINE NITRITE POSITIVE (NEGATIVE); URINE PROTEIN 3+ (NEGATIVE)
[2017-09-05] MEDS ORDERED: PROPOFOL 20 ML ONE ×2 (12:45→13:51)
[2017-09-05] MEDS ORDERED: MIDAZOLAM HCL 2 MG/2 ML SINGLE DOSE VIAL ONE (12:45)
[2017-09-05] MEDS ORDERED: LIDOCAINE HCL/PF 2% SDV 5ML VIAL ONE (12:49)
[2017-09-05] MEDS ORDERED: ceFAZolin SODIUM 1 GM VIAL IVPB ONE (13:10)
--- NOTE | 2017-09-05 14:13 | CON.GU ---
Consult Consult Specialty:: Urology Reason for Consultation:: Gross hematuria and clot retention - History of Present Illness Chief Complaint: Bloody urine - History Source History Provided By: Patient Limitations to Obtaining History: No Limitations - Alcohol/Substance Use Hx Alcohol Use: No - Smoking History Smoking history: Never smoked Have you smoked in the past 12 months: No Aproximately how many cigarettes per day: 0 Home Medications - Allergies Allergies/Adverse Reactions: Allergies Allergy/AdvReac Type Severity Reaction Status Date / Time No Known Drug Allergies Allergy Verified 09/04/17 15:19 - Home Medications Home Medications: Ambulatory Orders Amlodipine Besylate [Norvasc -] 10 mg PO DAILY 09/04/17 Clopidogrel Bisulfate [Plavix] 75 mg PO DAILY 09/04/17 Losartan Potassium [Cozaar] 100 mg PO DAILY 09/04/17 Metoprolol Tartrate [Lopressor] 50 mg PO DAILY 09/04/17 Rosuvastatin [Crestor -] 40 mg PO DAILY 09/04/17 Physical Exam- Vital Signs: Vital Signs Temperature 98.2 F 09/05/17 10:17 Pulse Rate 84 09/05/17 10:17 Respiratory Rate 20 09/05/17 10:17 Blood Pressure 106/73 09/05/17 10:17 O2 Sat by Pulse Oximetry (%) 99 09/05/17 02:03 Labs: CBC, BMP 09/05/17 07:00 09/05/17 07:00 Assessment/Plan Pt with gross hematuria, in clot retention for cysto, clot evacuation and fulguration
--- NOTE | 2017-09-05 14:15 | OP ---
Operative Note - Note: Operative Date: 09/05/17 Pre-Operative Diagnosis: Gross hematuria and clot retention Operation: Cysto, evacuation of clots and fulguration of bleeding in Prostatic urethra Post-Operative Diagnosis: Same as Pre-op Surgeon: Pierre Pedersen Anesthesia: General Specimens Removed: Clots of about 3000 ccs Drains & Tubes with Location: [address] langston with 30 cc balloon
[2017-09-05] MEDS ORDERED: ONDANSETRON 4 MG/2 ML VIAL IVPUSH PRN (14:21)
[2017-09-05] MEDS ORDERED: METOPROLOL TARTRATE 5 MG/5 ML VIAL IVPUSH ONE (14:21)
--- NOTE | 2017-09-05 14:37 | HP ---
Admitting History and Physical - Admission History of Present Illness: 72 y/o M with h/o HTN, CAD and recent h/o UTI and gross hematuria post abx is admitted as per urologist recommendation for cystoscopy and evaluation. Hematuria origin is from prostatic urethra according to cystoscopy results. Today, Mr. Perez denies fever, chills. No abdominal pain. No cp,pp or sob. - Smoking History Smoking history: Never smoked Have you smoked in the past 12 months: No Aproximately how many cigarettes per day: 0 - Alcohol/Substance Use Hx Alcohol Use: No Home Medications - Allergies Allergies/Adverse Reactions: Allergies Allergy/AdvReac Type Severity Reaction Status Date / Time No Known Drug Allergies Allergy Verified 09/04/17 15:19 - Home Medications Home Medications: Ambulatory Orders Amlodipine Besylate [Norvasc -] 10 mg PO DAILY 09/04/17 Losartan Potassium [Cozaar] 100 mg PO DAILY 09/04/17 Metoprolol Tartrate [Lopressor] 50 mg PO DAILY 09/04/17 Rosuvastatin [Crestor -] 40 mg PO DAILY 09/04/17 Tamsulosin HCl [Flomax -] 0.4 mg PO DAILY@0830 #30 cap.er.24h 09/07/17 Physical Examination Vital Signs: Vital Signs Temperature 97.3 F L 09/05/17 14:03 Pulse Rate 78 09/05/17 14:21 Respiratory Rate 18 09/05/17 14:03 Blood Pressure 128/63 09/05/17 14:21 O2 Sat by Pulse Oximetry (%) 98 09/05/17 14:03 Constitutional: Yes: No Distress Cardiovascular: Yes: Regular Rate and Rhythm Respiratory: Yes: Regular, CTA Bilaterally Gastrointestinal: Yes: Normal Bowel Sounds, Soft Labs: CBC, BMP 09/05/17 07:00 09/05/17 07:00 Problem List - Problems (1) HTN (hypertension) Code(s): I10 - ESSENTIAL (PRIMARY) HYPERTENSION (2) HLD (hyperlipidemia) Code(s): E78.5 - HYPERLIPIDEMIA, UNSPECIFIED (3) CAD (coronary artery disease) Code(s): I25.10 - ATHSCL HEART DISEASE OF [place] CORONARY ARTERY W/O ANG PCTRS (4) BPH (benign prostatic hyperplasia) Code(s): N40.0 - BENIGN PROSTATIC HYPERPLASIA WITHOUT LOWER URINRY TRACT SYMP (5) UTI (urinary tract infection) Code(s): N39.0 - URINARY TRACT INFECTION, SITE NOT SPECIFIED Assessment/Plan (1) HTN (hypertension) cont medications monitor BP (2) HLD (hyperlipidemia) cont medications (3) CAD (coronary artery disease) cont medications (4) BPH (benign prostatic hyperplasia)/ Hematuria-s/p cystoscopy/UTI As per Urology -cont apha jose guadalupe--prostatic urethral bleeding - abx
[2017-09-05 15:19] LABS: BASO % 0.1 % (0-2.0); EOS % 0.8 % (0-4.5); HEMATOCRIT 32.9 % (35.4-49); HEMOGLOBIN 11.4 GM/dL (11.7-16.9); LYMPH % 13.6 % (8-40); MCH 31.8 pg (25.7-33.7); MCHC 34.8 g/dl (32.0-35.9); MEAN CELL VOLUME 91.4 fl (80-96); MONO % 10.4 % (3.8-10.2); NEUT % 75.1 % (42.8-82.8); PLATELET COUNT 166 K/MM3 (134-434); RDW 13.6 % (11.9-15.9)
--- NOTE | 2017-09-05 15:32 | OP ---
DATE OF OPERATION: 09/05/2017 SURGEON: Pierre Pedersen M.D. ANESTHESIA: General. PREOPERATIVE DIAGNOSIS: Gross hematuria . POSTOPERATIVE DIAGNOSIS: Gross hematuria . PROCEDURE: Cystoscopy, evacuation of clots, and fulguration of bleeding points. FINDINGS: About 3000 mL of clots noted within the bladder, severe bladder noted in the prostatic urethra, rest of the bladder appeared to be normal. PROCEDURE: Patient in lithotomy position, under anesthesia was prepped and draped in the usual manner; a 24 resectoscope was introduced into the bladder, and Ellik evacuator, bladder was irrigated free of clots. Several thousand mL of clots evacuated. Then the bladder was inspected, no evidence of any gross abnormality noted within the bladder, but prostatic urethra was found to be bleeding actively all around. Using the resectoscope, the fulguration was carried out in the prostatic urethra as much as possible, then 22 Phipps was introduced, and the catheter was placed in traction. The return was found to be clear at this point. IMPRESSION: Gross hematuria, prostatic urethral bleeding, and patient tolerated the procedure well, and left the operating room in a satisfactory condition. PIERRE PEDERSEN M.D. [id number]
[2017-09-05 15:37] LABS: ANION GAP 12 (8-16); BLOOD UREA NITROGEN 21 mg/dL (7-18); CALCIUM 9.1 mg/dL (8.5-10.1); CHLORIDE 101 mmol/L (98-107); CO2 27 mmol/L (21-32); GLUCOSE,RANDOM 162 mg/dL (74-106); POTASSIUM 3.6 mmol/L (3.5-5.1); SODIUM 140 mmol/L (136-145)
[2017-09-05 15:39] LABS: CREATININE 0.9 mg/dL (0.7-1.3)
[2017-09-05] MEDS: LACTATED RINGERS SOLUTION 1,000 ML IV SCH (16:56)
[2017-09-05] MEDS ORDERED: CEFAZOLIN 1 GM in DEXTROSE 5%-WATER - 50 ML IVPB SCH (18:00)
[2017-09-05] MEDS: ROSUVASTATIN CA 20 MG TABLET (FP) PO SCH (22:01)
[2017-09-05] MEDS: ACETAMINOPHEN 325 MG TABLET (FP) PO PRN (22:42)
[2017-09-06] MEDS: LACTATED RINGERS SOLUTION 1,000 ML IV SCH ×2 (02:44→19:13)
[2017-09-06 07:48] LABS: BASO % 0.1 % (0-2.0); EOS % 0.2 % (0-4.5); HEMATOCRIT 29.4 % (35.4-49); HEMOGLOBIN 10.5 GM/dL (11.7-16.9); LYMPH % 9.8 % (8-40); MCH 31.9 pg (25.7-33.7); MCHC 35.6 g/dl (32.0-35.9); MEAN CELL VOLUME 89.5 fl (80-96); MEAN PLT VOLUME 8.2 fl (7.5-11.1); MONO % 8.7 % (3.8-10.2); NEUT % 81.2 % (42.8-82.8); PLATELET COUNT 157 K/MM3 (134-434); RBC 3.28 M/mm3 (4.00-5.60); RDW 13.5 % (11.9-15.9); WHITE BLOOD COUNT 12.3 K/mm3 (4.0-10.0)
[2017-09-06 07:53] LABS: ALBUMIN 3.3 g/dl (3.4-5.0); ANION GAP 5 (8-16); BLOOD UREA NITROGEN 18 mg/dL (7-18); CALCIUM 8.7 mg/dL (8.5-10.1); CHLORIDE 105 mmol/L (98-107); CO2 30 mmol/L (21-32); GLUCOSE,RANDOM 160 mg/dL (74-106); POTASSIUM 4.2 mmol/L (3.5-5.1); SODIUM 140 mmol/L (136-145)
[2017-09-06 07:59] LABS: ALK PHOS 44 U/L (45-117); BILIRUBIN,TOTAL 0.6 mg/dL (0.2-1.0); CREATININE 0.8 mg/dL (0.7-1.3); SGOT/AST 19 U/L (15-37); SGPT/ALT 38 U/L (12-78); TOT PROT 6.2 g/dl (6.4-8.2)
[2017-09-06] MEDS: TAMSULOSIN HCL 0.4 MG CAP.ER.24H (FP) PO SCH (09:07)
[2017-09-06] MEDS: LOSARTAN POTASSIUM 50 MG TABLET (FP) PO SCH (09:07)
[2017-09-06] MEDS: CLOPIDOGREL BISULFATE 75 MG TABLET (FP) PO SCH ×2 (09:07→13:06)
[2017-09-06] MEDS: METOPROLOL TARTRATE 50 MG TABLET (FP) PO SCH (09:07)
[2017-09-06] MEDS: amLODIPine BESYLATE 10 MG TABLET (FP) PO SCH (09:07)
[2017-09-06] MEDS: ACETAMINOPHEN 325 MG TABLET (FP) PO PRN (09:15)
--- NOTE | 2017-09-06 09:17 | PN ---
Progress Note, Physician Chief Complaint: Pt. says his left arm is going numb more often, but this does happen to him at home when he sleeps on it too long. He thinks its from his position in the bed on the floor after he woke up. No specific nerve deficits, or tingling. Says it feels a little cold. Hospitalist was called to evaluate also. - Current Medication List Current Medications: Active Medications Acetaminophen (Tylenol -) 650 mg PO Q4H PRN PRN Reason: PAIN LEVEL 6-10 Last Admin: 09/05/17 22:42 Dose: 650 mg Amlodipine Besylate (Norvasc -) 10 mg PO DAILY [facility] Last Admin: 09/06/17 09:07 Dose: 10 mg Clopidogrel Bisulfate (Plavix -) 75 mg PO DAILY [facility] Last Admin: 09/06/17 09:07 Dose: 75 mg Ceftriaxone Sodium 1 gm/ (Dextrose) 50 mls @ 100 mls/hr IVPB DAILY [facility] Last Admin: 09/05/17 10:20 Dose: 100 mls/hr Lactated Ringer's (Lactated Ringers Solution) 1,000 mls @ 75 mls/hr IV ASDIR [facility] Last Admin: 09/06/17 02:44 Dose: 75 mls/hr Losartan Potassium (Cozaar -) 100 mg PO DAILY [facility] Last Admin: 09/06/17 09:07 Dose: 100 mg Metoprolol Tartrate (Lopressor -) 50 mg PO DAILY [facility] Last Admin: 09/06/17 09:07 Dose: 50 mg Ondansetron HCl (Zofran Injection) 4 mg IVPUSH Q6H PRN PRN Reason: NAUSEA AND/OR VOMITING Rosuvastatin Calcium (Crestor -) 40 mg PO HS [facility] Last Admin: 09/05/17 22:01 Dose: 40 mg Tamsulosin HCl (Flomax -) 0.4 mg PO DAILY@0830 [facility] Last Admin: 09/06/17 09:07 Dose: 0.4 mg - Objective Vital Signs: Vital Signs Temperature 98 F 09/06/17 07:13 Pulse Rate 91 H 09/06/17 07:13 Respiratory Rate 18 09/06/17 07:13 Blood Pressure 128/60 09/06/17 07:13 O2 Sat by Pulse Oximetry (%) 97 09/05/17 21:00 Constitutional: Yes: Well Nourished, No Distress, Calm Musculoskeletal: Yes: Other (numbness and cold in Left arm from shoulder down to hand) Neurological: Yes: WNL, Alert, Oriented ...Motor Strength: WNL Labs: CBC, BMP 09/06/17 07:10 09/06/17 07:10 Assessment/Plan POD#1 s/p Cystoscopy evacuation of clot under GA. Has some left arm numbness that he's had before seemingly unrelated to anesthesia. Hospitalist called to evaluate and ordered EKG. D/C from anesthesia care. Call if needed
[2017-09-06] MEDS ORDERED: cefTRIAXone SODIUM 1 GM VIAL ONE (09:27)
[2017-09-06] MEDS ORDERED: DEXTROSE 5%-WATER - 50 ML IVPB ONE (09:28)
[2017-09-06] MEDS: CEFTRIAXONE 1 GM in DEXTROSE 5%-WATER - 50 ML IVPB SCH (09:30)
--- NOTE | 2017-09-06 10:15 | PN ---
Progress Note (short form) - Note Progress Note: Pt. is doing well. Urine is clear. will d/c CBI today. OOB. If urine continues to be clear, pt. can be discharged urologically, with langtson to a leg bag. He will be seen in the office on Friday for further follow. Will hold plavix till the pt. is seen in the office on Friday. Pt. can be placed on bactrim upon discharge.
--- NOTE | 2017-09-06 11:03 | EKG ---
Test Reason : Blood Pressure : / mmHG Vent. Rate : 091 BPM Atrial Rate : 091 BPM P-R Int : 160 ms QRS Dur : 100 ms QT Int : 366 ms P-R-T Axes : 038 -15 133 degrees QTc Int : 450 ms SINUS RHYTHM WITH OCCASIONAL PREMATURE VENTRICULAR COMPLEXES NONSPECIFIC ST AND T WAVE ABNORMALITY ABNORMAL ECG WHEN COMPARED WITH ECG OF 04-SEP-2017 16:56, SINUS RHYTHM HAS REPLACED ELECTRONIC ATRIAL PACEMAKER Confirmed by PORSCHE KILPATRICK, BABATUNDE ([id number]) on 09/06/2017 11:03:14 AM Referred By: Mariana MORELAND Confirmed By:BABATUNDE MORRELL MD
[2017-09-06] MEDS: ROSUVASTATIN CA 20 MG TABLET (FP) PO SCH (21:49)
--- NOTE | 2017-09-06 23:33 | PN ---
Progress Note, Physician History of Present Illness: no new complaints - Current Medication List Current Medications: Active Medications Acetaminophen (Tylenol -) 650 mg PO Q4H PRN PRN Reason: PAIN LEVEL 6-10 Last Admin: 09/06/17 09:15 Dose: 650 mg Amlodipine Besylate (Norvasc -) 10 mg PO DAILY [facility] Last Admin: 09/06/17 09:07 Dose: 10 mg Clopidogrel Bisulfate (Plavix -) 75 mg PO DAILY [facility] Last Admin: 09/06/17 13:06 Dose: Not Given Ceftriaxone Sodium 1 gm/ (Dextrose) 50 mls @ 100 mls/hr IVPB DAILY [facility] Last Admin: 09/06/17 09:30 Dose: 100 mls/hr Losartan Potassium (Cozaar -) 100 mg PO DAILY [facility] Last Admin: 09/06/17 09:07 Dose: 100 mg Metoprolol Tartrate (Lopressor -) 50 mg PO DAILY [facility] Last Admin: 09/06/17 09:07 Dose: 50 mg Ondansetron HCl (Zofran Injection) 4 mg IVPUSH Q6H PRN PRN Reason: NAUSEA AND/OR VOMITING Rosuvastatin Calcium (Crestor -) 40 mg PO [facility] Last Admin: 09/06/17 21:49 Dose: 40 mg Tamsulosin HCl (Flomax -) 0.4 mg PO DAILY@0830 [facility] Last Admin: 09/06/17 09:07 Dose: 0.4 mg - Objective Vital Signs: Vital Signs Temperature 99.1 F 09/06/17 18:00 Pulse Rate 81 09/06/17 18:00 Respiratory Rate 18 09/06/17 18:00 Blood Pressure 113/56 09/06/17 18:00 O2 Sat by Pulse Oximetry (%) 98 09/06/17 09:00 Constitutional: Yes: No Distress Cardiovascular: Yes: Regular Rate and Rhythm Respiratory: Yes: Regular, CTA Bilaterally Gastrointestinal: Yes: Normal Bowel Sounds Labs: CBC, BMP 09/06/17 07:10 09/06/17 07:10 Problem List - Problems (1) BPH (benign prostatic hyperplasia) Code(s): N40.0 - BENIGN PROSTATIC HYPERPLASIA WITHOUT LOWER URINRY TRACT SYMP (2) CAD (coronary artery disease) Code(s): I25.10 - ATHSCL HEART DISEASE OF [place] CORONARY ARTERY W/O ANG PCTRS (3) HLD (hyperlipidemia) Code(s): E78.5 - HYPERLIPIDEMIA, UNSPECIFIED (4) HTN (hypertension) Code(s): I10 - ESSENTIAL (PRIMARY) HYPERTENSION (5) Hematuria Code(s): R31.9 - HEMATURIA, UNSPECIFIED (6) UTI (urinary tract infection) Code(s): N39.0 - URINARY TRACT INFECTION, SITE NOT SPECIFIED Assessment/Plan (1) HTN (hypertension) cont medications monitor BP (2) HLD (hyperlipidemia) cont medications (3) CAD (coronary artery disease) cont medications (4) BPH (benign prostatic hyperplasia)/ Hematuria-s/p cystoscopy/UTI As per Urology -cont apha jose guadalupe--urine is now clear / consider d/c - abx
[2017-09-07 01:20] VITALS: TEMP 98
[2017-09-07 07:18] LABS: BASO % 0.3 % (0-2.0); EOS % 8.3 % (0-4.5); HEMATOCRIT 28.4 % (35.4-49); LYMPH % 26.9 % (8-40); MCH 32.2 pg (25.7-33.7); MCHC 35.3 g/dl (32.0-35.9); MEAN PLT VOLUME 7.9 fl (7.5-11.1); MONO % 10.1 % (3.8-10.2); NEUT % 54.4 % (42.8-82.8); PLATELET COUNT 137 K/MM3 (134-434); RBC 3.12 M/mm3 (4.00-5.60); RDW 13.5 % (11.9-15.9); WHITE BLOOD COUNT 8.4 K/mm3 (4.0-10.0)
[2017-09-07 07:54] LABS: ALBUMIN 3.1 g/dl (3.4-5.0); ANION GAP 7 (8-16); BILIRUBIN,TOTAL 0.5 mg/dL (0.2-1.0); BLOOD UREA NITROGEN 13 mg/dL (7-18); CALCIUM 9.1 mg/dL (8.5-10.1); CHLORIDE 108 mmol/L (98-107); CO2 29 mmol/L (21-32); CREATININE 0.8 mg/dL (0.7-1.3); GLUCOSE,RANDOM 110 mg/dL (74-106); POTASSIUM 4.1 mmol/L (3.5-5.1); SGOT/AST 27 U/L (15-37); SGPT/ALT 35 U/L (12-78); SODIUM 144 mmol/L (136-145); TOT PROT 6.2 g/dl (6.4-8.2)
[2017-09-07 07:55] LABS: ALK PHOS 42 U/L (45-117)
[2017-09-07] MEDS ORDERED: PT OWN MED DRAWER 7, Y5N ONE (08:45)
[2017-09-07] MEDS ORDERED: DEXTROSE 5%-WATER - 50 ML IVPB ONE (08:46)
[2017-09-07] MEDS ORDERED: cefTRIAXone SODIUM 1 GM VIAL ONE (08:46)
[2017-09-07] MEDS: amLODIPine BESYLATE 10 MG TABLET (FP) PO SCH (09:05)
[2017-09-07] MEDS: LOSARTAN POTASSIUM 50 MG TABLET (FP) PO SCH (09:05)
[2017-09-07] MEDS: METOPROLOL TARTRATE 50 MG TABLET (FP) PO SCH (09:05)
[2017-09-07] MEDS: TAMSULOSIN HCL 0.4 MG CAP.ER.24H (FP) PO SCH (09:05)
[2017-09-07] MEDS: CEFTRIAXONE 1 GM in DEXTROSE 5%-WATER - 50 ML IVPB SCH (09:05)
[2017-09-07 09:13] VITALS: BP 126/66; PULSE 72
--- NOTE | 2017-09-07 10:31 | PN ---
Progress Note (short form) - Note Progress Note: Pt. seen. Langston draining clear urine. For discharge today with langston. Will follow in the office tomorrow.
--- NOTE | 2017-09-14 21:09 | DS ---
Physical Examination Vital Signs: Vital Signs Temperature 98 F 09/07/17 07:38 Pulse Rate 72 09/07/17 09:00 Respiratory Rate 18 09/07/17 09:00 Blood Pressure 126/66 09/07/17 09:00 O2 Sat by Pulse Oximetry (%) 97 09/07/17 09:00 Constitutional: Yes: No Distress Cardiovascular: Yes: Regular Rate and Rhythm Respiratory: Yes: Regular, CTA Bilaterally Gastrointestinal: Yes: Normal Bowel Sounds Labs: CBC, BMP 09/07/17 07:05 09/07/17 07:05 Discharge Summary Reason For Visit: RETENTION OF URINE,UTI,CYSTITIS (1) BPH (benign prostatic hyperplasia) (2) CAD (coronary artery disease) (3) HLD (hyperlipidemia) (4) HTN (hypertension) (5) Hematuria (6) UTI (urinary tract infection) Hospital Course: 72 y/o M with h/o HTN, CAD and recent h/o UTI and gross hematuria post abx was admitted as per urologist recommendation for cystoscopy and evaluation. Hematuria origin is from prostatic urethra according to cystoscopy results. Over the course of stay he improved and his urine became clear. He will f/u as outpt with [facility] cath to Urologist. Condition: Stable - Instructions Diet, Activity, Other Instructions: 2 gram sodium diet See Dr Pedersen on friday See Dr Mo Atwood this week Referrals: Mo Atwood MD [Primary Care Provider] - Disposition: HOME - Home Medications Comprehensive Discharge Medication List: Ambulatory Orders Amlodipine Besylate [Norvasc -] 10 mg PO DAILY 09/04/17 Losartan Potassium [Cozaar] 100 mg PO DAILY 09/04/17 Metoprolol Tartrate [Lopressor] 50 mg PO DAILY 09/04/17 Rosuvastatin [Crestor -] 40 mg PO DAILY 09/04/17 Tamsulosin HCl [Flomax -] 0.4 mg PO DAILY@0830 #30 cap.er.24h 09/07/17
== END 2017-09-07 13:57 | disposition home or self-care (01) | DRG 700 ==
LOC: JER 14:56 → JERBED 15:59 → J5S 09-05 00:16
PROVIDERS: ADMIT Internal Medicine; ATTEND Internal Medicine
PROC: 0TCB8ZZ Extirpation of Matter from Bladder, Via Natural or Artificial Opening Endoscopic (ICD-10-PCS; 2017-09-05)
PROC: 0TJB8ZZ Inspection of Bladder, Via Natural or Artificial Opening Endoscopic (ICD-10-PCS; 2017-09-05)
PROC: 0T5D8ZZ Destruction of Urethra, Via Natural or Artificial Opening Endoscopic (ICD-10-PCS; principal; 2017-09-05 12:00)
DX: N32.89 Other specified disorders of bladder (principal); R31.0 Gross hematuria; R33.9 Retention of urine, unspecified
CPT/HCPCS: 36415; 80048; 80053; 81003; 81015; 85025; 87086; 93005; 93010; 94760; 99281-25; 99283-25

== ENCOUNTER → 2019-04-21 | Day surgery (SDC) | payer OTHER ==
[2019-04-20 11:19] VITALS: BMI 32.6
[~2019-04-21] MED LIST: DEXAMETHASONE SOD PHOSPHATE 4 MG/1 ML VIAL ONE; KETOROLAC TROMETHAMINE 30 MG/1 ML VIAL ONE; LIDOCAINE HCL 2% (50ML VIAL) INF ONE; MIDAZOLAM HCL 2 MG/2 ML SINGLE DOSE VIAL ONE; ONDANSETRON 4 MG/2 ML VIAL ONE; PROPOFOL 20 ML ONE
[2019-04-21 11:19] VITALS: BP 126/71; TEMP 97.3
[2019-04-21 11:44] VITALS: PULSE 74
--- NOTE | 2019-04-26 13:43 | OP ---
DATE OF OPERATION: 04/21/2019 PREOPERATIVE DIAGNOSIS: Left index trigger finger. POSTOPERATIVE DIAGNOSIS: Left index trigger finger. OPERATIVE PROCEDURE: Left index trigger finger release. SURGEON: Chung Lucio MD ANESTHESIA: Local with sedation. COMPLICATIONS: None. ESTIMATED BLOOD LOSS: Minimal. INDICATIONS FOR PROCEDURE: The patient is a 73-year-old male with the above findings, indicated for operative treatment. Risks, benefits, and alternatives were discussed with the patient at length. Proper informed consent was obtained. DESCRIPTION OF PROCEDURE: After proper identification of the patient and correct operative site, the patient was brought to the operating room and placed supine on the operating room table with all prominences well padded. Sedation and local anesthesia was given. Left upper extremity was prepped and draped in the usual sterile fashion. A well-padded tourniquet was placed over a sterile prep. Esmarch bandage used to exsanguinate left upper extremity. Tourniquet was inflated to 250 mmHg. Longitudinal incision made over the A1 luis of the index finger. Incision was taken sharply through skin with blunt and sharp dissection through subcutaneous tissues. A1 luis was identified and divided longitudinally. Patient was asked to flex and extend his finger and no further triggering was noted. The wound was irrigated and repaired with a 5-0 fast-absorbing plain-gut suture. Sterile dressings were applied. Patient brought to recovery room in stable condition. He tolerated procedure well. CHUNG LUCIO M.D. [id number]
== END | disposition home or self-care (01) ==
LOC: FASU 09:01
PROVIDERS: ATTEND Orthopaedic Surgery Hand Surgery
PROC: 0LN80ZZ Release Left Hand Tendon, Open Approach (ICD-10-PCS; principal; 2019-04-21 10:55)
DX: M65.322 Trigger finger, left index finger (principal)

== ENCOUNTER 2019-12-29 09:27 | Day surgery (SDC) | payer OTHER ==
[2019-12-28 10:52] VITALS: BMI 31.1
[2019-12-29] MEDS ORDERED: MIDAZOLAM HCL 2 MG/2 ML SINGLE DOSE VIAL ONE (12:18)
[2019-12-29] MEDS ORDERED: ceFAZolin SODIUM 1 GM VIAL IVPB ONE (12:26)
[2019-12-29] MEDS ORDERED: ceFAZolin SODIUM 1 GM VIAL ONE (13:43)
[2019-12-29] MEDS ORDERED: PROMETHAZINE HCL 25 MG/1 ML VIAL IVPB PRN (13:50)
[2019-12-29] MEDS ORDERED: oxyCODONE HCL 5 MG TABLET PO PRN ×3 (13:50→16:00)
[2019-12-29] MEDS ORDERED: LACTATED RINGERS SOLUTION 1,000 ML IV SCH (14:00)
[2019-12-29] MEDS ORDERED: ACETAMINOPHEN 325 MG TABLET (FP) PO PRN ×3 (14:01→16:00)
[2019-12-29] MEDS ORDERED: TAMSULOSIN HCL 0.4 MG CAP PO ONE (14:01)
--- NOTE | 2019-12-29 14:17 | OP ---
Operative Note - Note: Operative Date: 12/29/19 Pre-Operative Diagnosis: bph with luts Operation: turp/tuvp Findings: trilobar prostate hypertrophy Post-Operative Diagnosis: Same as Pre-op Surgeon: Jovita Atwood Anesthesia: Spinal Specimens Removed: prostate tissue Estimated Blood Loss (mls): 50 Drains, Volume Out (mls): 0 Blood Volume Replaced (mls): 0 Fluid Volume Replaced (mls): 0 Operative Report Dictated: Yes
[2019-12-29] MEDS: CEPHALEXIN MONOHYDRATE 500 MG CAPSULE (UD) PO SCH ×2 (16:03→22:09)
--- NOTE | 2019-12-29 16:48 | RAPID ---
Physical Examination Vital Signs: O2 97% HR 85 BP 147/76 Constitutional: Yes: No Distress Eyes: Yes: WNL HENT: Yes: WNL Neck: Yes: WNL Respiratory: Yes: WNL Gastrointestinal: Yes: WNL ...Rectal Exam: Yes: Deferred Renal/: Yes: Hematuria Musculoskeletal: Yes: WNL Extremities: Yes: WNL Neurological: Yes: WNL, Alert, Oriented ...Motor Strength: WNL Psychiatric: Yes: WNL (patient fell when trying to get oob to chair. Patient reports hitting his knees.) Rapid Response - Rapid Response Assessment: RR called @ 16:41 RR team responded immediately. Patient fell trying to get oob to chair. Reports hitting his knees PE: General: patient awake, alert, orients, in no acute distress Heart: RRR Lungs: CTA BL HEAD: no trauma ENT: PERRL, occular movements intact, conjunctiva clear Extremities: muscle strength 5/5 in all extremities. Minor tenderness on knees. No scraps or bruising noted. Neuro: patient has normal speech, sensation intact Plan: Discussed with attending Dr. Koch, no imaging or labs are required at this time. If new symptoms arise, please let the team know in order to reassess the patient. Patient is stable
[2019-12-29] MEDS: ONDANSETRON 4 MG/2 ML VIAL IVPUSH PRN (19:18)
[2019-12-30] MEDS: CEPHALEXIN MONOHYDRATE 500 MG CAPSULE (UD) PO SCH (05:22)
[2019-12-30] MEDS: ONDANSETRON 4 MG/2 ML VIAL IVPUSH PRN (05:30)
--- NOTE | 2019-12-30 10:04 | OP ---
DATE OF OPERATION: 12/29/2019 PREOPERATIVE DIAGNOSIS: Obstructive uropathy, benign prostatic hypertrophy. POSTOPERATIVE DIAGNOSIS: Obstructive uropathy, benign prostatic hypertrophy, with trabeculated bladder. OPERATIVE PROCEDURE: Transurethral resection of the prostate, transurethral vaporization of the prostate. ANESTHESIA: Spinal. DESCRIPTION OF PROCEDURE: Under above-stated anesthesia, patient is prepped and draped in the usual sterile manner. He is placed in the dorsal lithotomy position. Cystoscopy revealed trilobar hypertrophy of the prostate. There was lateral lobe kissing. The bladder revealed a grade 2-3 trabeculation. No lesions or calculi were seen. Urine was collected for C&S. Ureteral orifices were within normal limits, with efflux of clear urine. A bipolar resectoscope was inserted. Resection of the prostate was performed per usual fashion. Prostate chips were evacuated with an [employer] evacuator. VaporTrode bipolar was introduced and excess tissue was vaporized. Again, no active bleeding was noted. The scope was removed. The 24-Kosovan 30-mL 3-way Phipps was inserted. This was connected to continuous bladder irrigation. The patient tolerated the procedure well. He returned to the recovery room in good condition. MICHAEL PATIÑO M.D. [id number]
--- NOTE | 2019-12-30 12:50 | PN ---
DATE OF VISIT: DATE OF DICTATION: 12/29/2019 Patient is a 74-year-old male, underwent a TURP, TUVP earlier this day, possibly slipped and fell to the ground while attempting to sit in a chair. Examined by hospitalists, and no obvious trauma was noted. No loss of consciousness was endorsed. Presently, patient is afebrile. Abdomen is soft. Chest is clear. Phipps is connected to CBI. The return is blood tinged and all clots. Abdomen is soft. Patient is complaining of some slight abdominal pain in the epigastrium as well as loose bowel movement. Will have hospitalist evaluate patient. Will discontinue CBI in a.m. Anila [id number]
[2019-12-30 13:31] VITALS: BP 138/76; PULSE 99; TEMP 98.4
--- NOTE | 2019-12-31 17:51 | PATH ---
Surgical Pathology Report Patient Name: HARDEEP ARNDT Med. Rec. #: [id number] /Age/Gender: 1945 (Age: 74) / M Account: [id number] Location: AMBULATORY SURG Taken: 12/29/2019 Received: 12/29/2019 Reported: 12/31/2019 Physicians: Jovita Atwood M.D. Specimen(s) Received PROSTATE CHIPS Clinical History BPH Final Diagnosis PROSTATE CHIPS, TRANSURETHRAL RESECTION OF THE PROSTATE (TURP): BENIGN PROSTATIC TISSUE WITH GLANDULAR AND STROMAL HYPERPLASIA, ACUTE AND CHRONIC PROSTATITIS. Electronically Signed Michael Metcalf M.D. Gross Description Received in formalin, labeled "prostate chips" are multiple louis, irregular portions of soft tissue grossly consistent with prostatic chips together weighing 13 g. The specimen is entirely submitted in 9 cassettes. MADALYN/12/29/2019 sarbjit/12/29/2019
--- NOTE | 2020-01-03 13:31 | PATH ---
Cytology Non-Gynecological Report Patient Name: HARDEEP ARNDT Med. Rec. #: [id number] /Age/Gender: 1945 (Age: 74) / M Account: [id number] Location: AMBULATORY SURG Taken: 12/29/2019 Received: 12/30/2019 Reported: 01/03/2020 Physicians: Jovita Atwood M.D. Specimen(s) Received URINE VOIDED Clinical History Urine for cytology Final Diagnosis URINE FOR CYTOLOGY: SATISFACTORY FOR EVALUATION. NEGATIVE FOR HIGH GRADE UROTHELIAL CARCINOMA. NUMEROUS RED BLOOD CELLS AND FEW UROTHELIAL FRAGMENTS PRESENT Comment: Urothelial fragments are suggestive of prior instrumentation, lithiasis, or a low grade papillary neoplasm. Suggest clinical/radiologic correlation. Electronically Signed Michael Metcalf M.D. Gross Description Approximately 20cc of gatito fluid received fresh. One cytospin prepared.
== END 2019-12-30 12:34 | disposition home or self-care (01) ==
LOC: JASU-SURG 09:27 → JASUSAT 09:27 → J6S 15:50 → JASUSAT 12-30 12:34
PROVIDERS: ATTEND Urology
PROC: 0VT08ZZ Resection of Prostate, Via Natural or Artificial Opening Endoscopic (ICD-10-PCS; principal; 2019-12-29 12:00)
DX: N40.1 Benign prostatic hyperplasia with lower urinary tract symptoms (principal); N13.8 Other obstructive and reflux uropathy; N32.89 Other specified disorders of bladder
CPT/HCPCS: 82962; 87086; 88108; 88305-TC; 94010; 94760

== ENCOUNTER 2021-03-07 08:30 | Day surgery (SDC) | payer OTHER ==
[2021-03-02 10:40] VITALS: BMI 31.4
[2021-03-07 09:12] VITALS: TEMP 97.5
[2021-03-07] MEDS ORDERED: MIDAZOLAM HCL 2 MG/2 ML SINGLE DOSE VIAL ONE (09:28)
[2021-03-07] MEDS ORDERED: ONDANSETRON 4 MG/2 ML VIAL ONE (09:28)
[2021-03-07] MEDS ORDERED: DEXAMETHASONE SOD PHOSPHATE 4 MG/1 ML VIAL ONE (09:28)
[2021-03-07] MEDS ORDERED: KETOROLAC TROMETHAMINE 30 MG/1 ML VIAL ONE (09:28)
[2021-03-07] MEDS ORDERED: LIDOCAINE 1%/EPI 1:100000 (20 ML MULTI DOSE VIAL) ONE (09:50)
[2021-03-07] MEDS ORDERED: SODIUM BICARBONATE 8.4% 50 MEQ/50 ML VIAL ONE (09:51)
[2021-03-07] MEDS ORDERED: LIDOCAINE HCL 2% (20ML MULTI-DOSE VIAL) ONE (09:54)
[2021-03-07 10:38] VITALS: BP 141/60; PULSE 69
== END 2021-03-07 11:05 | disposition home or self-care (01) ==
LOC: FASU 08:30
PROVIDERS: ATTEND Orthopaedic Surgery Hand Surgery
PROC: 0LN70ZZ Release Right Hand Tendon, Open Approach (ICD-10-PCS; principal; 2021-03-07 10:25)
DX: M65.321 Trigger finger, right index finger (principal)

== ENCOUNTER 2022-04-17 11:18 | Emergency (ER) | payer OTHER ==
[2022-04-17 11:30] VITALS: BP 149/77; PULSE 85; RESP 18; TEMP 98.5; BMI 31.9
== END 2022-04-17 11:54 | disposition home or self-care (01) ==
LOC: FER 11:18
DX: S00.03XA Contusion of scalp, initial encounter (principal); W01.0XXA Fall on same level from slipping, tripping and stumbling without subsequent striking against object, initial encounter
CPT/HCPCS: 99281-25

== ENCOUNTER 2023-08-13 16:09 | Emergency (ER) | payer OTHER ==
[2023-08-13 17:07] VITALS: BP 147/76; PULSE 85; RESP 20; TEMP 98.3; BMI 46.3
== END 2023-08-13 17:12 | disposition home or self-care (01) ==
LOC: FER 16:09
DX: R68.2 Dry mouth, unspecified (principal)
CPT/HCPCS: 99282-25